=== PATIENT | female | born 1970 | race African-American/Black ===

== ENCOUNTER 2017-05-15 18:26 | Emergency (ER) | payer OTHER ==
[~2017-05-15] VITALS: Ht 165.1 cm; Wt 59.0 kg
[2017-05-15 18:29] VITALS: BP 165/95; Ht 165.1 cm; Wt 59.0 kg
== END 2017-05-15 19:30 | disposition other institution (70) ==
LOC: EDBD 18:26 → ED 18:26
DX: R42 Dizziness and giddiness (principal)
CPT/HCPCS: 82962

== ENCOUNTER 2017-05-15 18:26 | Emergency (ER) | payer OTHER | END 2017-05-15 19:30 | disposition other institution (70) | LOC: ED 18:26 | DX: Z02.89 Encounter for other administrative examinations (principal) ==